=== PATIENT | female | born 1995 | race Caucasian/White ===

== ENCOUNTER 2019-10-25 21:18 | Inpatient (IN) | payer BC ==
[2019-10-25] MEDS ORDERED: MISOPROSTOL 0.2 MG TABLET ONE (21:45)
[2019-10-25] MEDS ORDERED: OXYTOCIN 10 UNIT/ML VIAL ONE (21:45)
[2019-10-25] MEDS ORDERED: LIDOCAINE 1% INJ-PF (10 MG/ML) 30 ML SDV ONE (21:46)
[2019-10-25] MEDS ORDERED: OXYTOCIN/NORMAL SALINE 20 UNIT/1,000 ML RTUINJ ONE (21:46)
[2019-10-25] MEDS ORDERED: RINGERS SOLUTION,LACTATED 1,000 ML IV PRN (21:54)
[2019-10-25] MEDS ORDERED: RINGERS SOLUTION,LACTATED 1,000 ML IV ONE (21:54)
[2019-10-25 22:02] LABS: APPEARANCE,URINE CLOUDY; BILIRUBIN,URINE NEGATIVE (NEGATIVE); COLOR,URINE YELLOW; GLUCOSE, URINE NEGATIVE (NEGATIVE); KETONES,URINE NEGATIVE (NEGATIVE); LEUKOCYTE ESTERASE,URINE NEGATIVE (NEGATIVE); NITRITE,URINE NEGATIVE (NEGATIVE); PROTEIN,URINE 30 mg/dL (NEGATIVE); URINE SPECIFIC GRAVITY 1.017
--- NOTE | 2019-10-25 22:03 | Admission Physical ---
Datetime Report Generated by CPN: 10/25/2019 22:03 CURRENT ADMISSION Chief Complaint: Uterine Contractions Indication for Induction: Not Applicable Admit Impression : Term, Intrauterine Admit Plan: Admit to Unit; Initiate Labor Protocol ALLERGIES Medication Allergies: amoxicillin/SV/hives all over (10/25/2019) OBSTETRICAL HISTORY EDC: 10/23/2019 00:00 : 3 Para: 1 Livin Gestational Diabetes: No Rh Sensitization: No Incompetent Cervix: No REMEDIOS: No Infertility: No ART Treatment: No Uterine Anomaly: No IUGR: No Hx Previous C/S: No Macrosomia: No Hx Loss/Stillborn: No PIH: No Hx : No Placenta Previa/Abruption: No Depression/PP Depression: No PTL/PROM: No Post Hemorrhage: No Current Procedures: Ultrasound; NST Obstetrical History Comments: G1 2013 SAB G2 2016 @39 weeks, 8lbs 6oz, jaundice, hypospadis, anemia MEDICAL HISTORY Diabetes: No Blood Transfusion: No Pulmonary Disease (Asthma, TB): No Breast Disease: No Hypertension: No 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 Development 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 Surgery: No Heart Disease: No Hosp/Surgery: No Autoimmune Disorder: No Anesthetic Complications: No Kidney Disease: No Abnormal Pap Smear: No Neuro/Epilepsy: No Psychiatric Disorders: No Other Medical Diseases: No Hepatitis/Liver Disease: No Significant Family History: No Varicosities/Phlebitis: No Trauma/Violence : No Thyroid Dysfunction: No Medical History Comments: anemia INFECTIOUS HISTORY Gonorrhea: No Genital Herpes: No Chlamydia: No Tuberculosis: No Syphilis: No Hepatitis: No HIV/AIDS Exposure: No Rash or Viral Illness: No HPV: No PHYSICAL EXAM General: Normal HEENT: Normal Neurologic: Normal Thyroid: Normal Heart: Normal Lungs: Normal Breast: Deferred Back: Normal Abdomen: Normal Genitourinary Exam: Normal Extremities: Normal DTRs: Normal Pelvic Type: Adequate FETUS A EGA: 40.2 INFORMED CONSENT Signature: with User ID: [email or web address]
[2019-10-25] MEDS ORDERED: ACETAMINOPHEN 650 MG SUPP.RECT PR PRN (22:18)
[2019-10-25] MEDS ORDERED: ZOLPIDEM TARTRATE 5 MG TABLET PO PRN (22:18)
[2019-10-25] MEDS ORDERED: NA PHOS,M-B/NA PHOS,DI-BA (ADULT) 133 ML ENEMA PR PRN (22:18)
[2019-10-25] MEDS ORDERED: DIPHENHYDRAMINE HCL 25 MG CAPSULE PO PRN (22:18)
[2019-10-25] MEDS ORDERED: PROMETHAZINE HCL INJ 25 MG/1 ML VIAL IV PRN (22:18)
[2019-10-25] MEDS ORDERED: BENZOCAINE/MENTHOL AEROSOL SPRAY 56 ML TOP PRN (22:18)
[2019-10-25] MEDS ORDERED: PSEUDOEPHEDRINE HCL 30 MG TABLET PO PRN (22:18)
[2019-10-25] MEDS ORDERED: DIBUCAINE 1% OINTMENT 28 GM TP PRN (22:18)
[2019-10-25] MEDS ORDERED: DIPH/PERTUSS(ACELL)/TETANUS VAC/PF 0.5 ML SYR (>=10YO) IM PRN (22:18)
[2019-10-25] MEDS ORDERED: PROMETHAZINE HCL 25 MG TABLET PO PRN (22:18)
[2019-10-25] MEDS ORDERED: GLYCERIN/WITCH HAZEL LEAF 1 EACH MED..WIPE TP PRN (22:18)
[2019-10-25] MEDS ORDERED: ACETAMINOPHEN WITH CODEINE #3 TABLET PO PRN (22:18)
[2019-10-25] MEDS ORDERED: OXYTOCIN/NORMAL SALINE 20 UNIT/1,000 ML RTUINJ IV PRN (22:18)
[2019-10-25] MEDS ORDERED: PROMETHAZINE HCL 25 MG SUPP.RECT PR PRN (22:18)
[2019-10-25] MEDS ORDERED: MEASLES,MUMPS&RUBELLA VACC/PF 0.5 ML VIAL SUBCUT PRN (22:18)
[2019-10-25] MEDS ORDERED: MAGNESIUM HYDROXIDE SUSP 30 ML UDCUP PO PRN (22:18)
[2019-10-25 22:21] LABS: ABSOLUTE LYMPHOCYTES (AUTO) 1.7 10^3/uL (0.5-4.7); ABSOLUTE MONOCYTES (AUTO) 0.9 10^3/uL (0.1-1.4); ABSOLUTE NEUT (AUTO) 10.4 10^3/uL (1.7-8.2); BASOPHILS % (AUTO) 0.3 % (0-2); EOSINOPHILS % (AUTO) 0.2 % (0-6); HEMATOCRIT 38.8 % (36.0-47.0); HEMOGLOBIN 13.4 g/dL (12.0-15.5); LYMPHOCYTES % (AUTO) 12.9 % (13-45); MEAN CORPUSCULAR HEMOGLOBIN 31.2 pg (27.0-33.4); MEAN CORPUSCULAR HGB CONC 34.5 g/dL (32.0-36.0); MEAN CORPUSCULAR VOLUME 90 fl (80-97); MONOCYTES % (AUTO) 6.7 % (3-13); PLATELET COUNT 278 10^3/uL (150-450); RED BLOOD COUNT 4.29 10^6/uL (3.72-5.28); RED CELL DISTRIBUTION WIDTH 12.3 % (11.5-14.0); SEGMENTED NEUTROPHILS % (AUTO) 79.9 % (42-78); TOTAL CELLS COUNTED % (AUTO) 100 %
[2019-10-25 22:27] LABS: URINE AMPHETAMINES SCREEN NEGATIVE; URINE BARBITURATES SCREEN NEGATIVE; URINE BENZODIAZEPINES SCREEN NEGATIVE; URINE COCAINE SCREEN NEGATIVE; URINE MARIJUANA (THC) SCREEN NEGATIVE; URINE METHADONE SCREEN NEGATIVE; URINE PHENCYCLIDINE SCREEN NEGATIVE
--- NOTE | 2019-10-25 23:33 | Delivery Summary ---
Del Sum A-C Datetime Report Generated by CPN: 10/25/2019 23:32 DELIVERY PERSONNEL DELIVERY PERSONNEL: [id number] Delivery Doctor:: Korey Leblanc MD Labor and Delivery Nurse:: Shireen Brooks RNrecord label internship Nurse:: Cailin Bills RN Nursery Nurse:: Donna Mendiola RN Felt Pad Cutter/ROBOTYPE OPERATOR: Shamika Ruvalcaba, ST MATERNAL INFORMATION Delivery Anesthesia: None Medications After Delivery: Pitocin Bolus-Please Comment Meds After Delivery Comment: 20 units pitocin after placenta delivery Maternal Complications: None LABOR SUMMARY EDC: 10/23/2019 00:00 No. Babies in Womb: 1 Attempted: No Labor Anesthesia: None LABOR INFORMATION Reason for Induction: Not Applicable Onset of Labor: 10/25/2019 19:00 Complete Dilatation: 10/25/2019 22:09 Oxytocin: N/A Group B Beta Strep: Negative Antibiotics # of Doses: n/a Antibiotics Time of Last Dose: N/A Name of Antibiotic Given: N/A Steroids Given: None Reason Steroids Not Administered: Not Applicable MEMBRANES Membranes Rupture Method: Spontaneous Rupture of Membranes: 10/25/2019 22:07 Length of Rupture (hr): 0.07 Amniotic Fluid Color: Clear Amniotic Fluid Amount: Moderate Amniotic Fluid Odor: Normal STAGES OF LABOR Stage 1 hr: 3 Stage 1 min: 9 Stage 2 hr: 0 Stage 2 min: 2 Stage 3 hr: 0 Stage 3 min: 3 Total Time in Labor hr: 3 Total Time in Labor min: 14 VAGINAL DELIVERY Episiotomy: None Laceration #1: None Laceration Extension #1: N/A Laceration Repair: Not Applicable Sponge Count Correct: Yes Sharps Count Correct: Yes CSECTION DELIVERY Primary Indication: N/A Secondary Indication: N/A CSection Urgency: N/A CSection Incidence: N/A Labor: N/A Elective: N/A CSection Incision: N/A BABY A INFORMATION Infant Delivery Date/Time: 10/25/2019 22:11 Method of Delivery: Vaginal Nurse Controlled Delivery: No Born in Route : No : N/A Forceps: N/A Vacuum Extraction: N/A Shoulder Dystocia : No PRESENTATION/POSITION BABY A Presentation: Cephalic Cephalic Presentation: Vertex Vertex Position: Left Occipital Anterior Breech Presentation: N/A PLACENTA INFORMATION BABY A Placenta Delivery Time : 10/25/2019 22:14 Placenta Method of Delivery: Spontaneous Placenta Status: Delivered SCORES BABY A Heart Rate 1 min: >100 bpm Resp Effort 1 min: Good Cry Reflex Irritability 1 min: Cough or Sneeze or Pulls Away Muscle Tone 1 min: Active Motion Color 1 min: Body Doffing, Extremities Blue Resuscitation Effort 1 min: Tactile Stimulation SCORE 1 MIN: 9 Heart Rate 5 min: >100 bpm Resp Effort 5 min: Good Cry Reflex Irritability 5 min: Cough or Sneeze or Pulls Away Muscle Tone 5 min: Active Motion Color 5 min: Body Doff[place], Extremities Blue Resuscitation Effort 5 min: N/A SCORE 5 MIN: 9 INFANT INFORMATION BABY A Gestational Age at Delivery: 40.2 Gestational Status: Full Term- 39- 40.6 Weeks Infant Outcome : Liveborn Infant Condition : Stable Infant Sex: Female IDENTIFICATION BABY A Verification Date/Time: 10/25/2019 22:22 ID Band Number: [id number] Mother's Name Verified: Yes Infant RN Verifying : Aristeo Brooks RN/ Dee Dee Jarvis RN WEIGHT/LENGTH BABY A Birthweight (gm): 3220 Infant Weight (lb): 7 Weight (oz): 2 Length (in): 19.50 Infant Length (cm): 49.53 CORD INFORMATION BABY A No. Cord Vessels: 3 Nuchal Cord : N/A Cord Blood Taken: Yes-For Eval (Mom's Blood Type - or O+) Infant Suction: Mouth ASSESSMENT BABY A Complications: None Physical Findings at Delivery: Other Physical Findings- Other: see nursery assessment Respirations: Appears Normal Skin to Skin: Yes Business Systems Advisor/ALS Called : No Infant Care By: Zak Mendiola RN Transferred To: Remains with Mother BABY B INFORMATION : N/A SIGNATURES Signature: with User ID: [email or web address]
[2019-10-26] MEDS: FAMOTIDINE 20 MG TABLET PO SCH ×3 (01:53→21:48)
[2019-10-26] MEDS: IBUPROFEN 800 MG TABLET PO SCH ×3 (06:27→21:48)
[2019-10-26 07:11] LABS: HEMATOCRIT 34.9 % (36.0-47.0); HEMOGLOBIN 12.4 g/dL (12.0-15.5); MEAN CORPUSCULAR HEMOGLOBIN 31.8 pg (27.0-33.4); MEAN CORPUSCULAR HGB CONC 35.4 g/dL (32.0-36.0); MEAN CORPUSCULAR VOLUME 90 fl (80-97); PLATELET COUNT 235 10^3/uL (150-450); RED BLOOD COUNT 3.89 10^6/uL (3.72-5.28); RED CELL DISTRIBUTION WIDTH 12.8 % (11.5-14.0); WHITE BLOOD COUNT 14.9 10^3/uL (4.0-10.5)
[2019-10-26] MEDS: FERROUS SULFATE 325 MG TABLET PO SCH ×2 (10:01→17:38)
[2019-10-26] MEDS: PRENATAL VITAMIN W DHA CAPSULE PO SCH (10:01)
[2019-10-26] MEDS: SENNOSIDES/DOCUSATE 8.6-50 MG 1 EACH TABLET PO SCH (10:01)
[2019-10-26] MEDS: DOCUSATE SODIUM 100 MG CAPSULE PO SCH ×2 (10:01→17:38)
--- NOTE | 2019-10-26 11:34 | PDOC PROGRESS REPORT ---
Subjective-OB Progress Note for:: 10/26/19 Subjective: reports bleeding slowing, pain controlled with current meds. denies needs Physical Exam (OB) Vital Signs: Temp Pulse Resp BP Pulse Ox 97.6 F 81 16 97/58 L 99 10/26/19 07:12 10/26/19 07:12 10/26/19 07:12 10/26/19 07:12 10/26/19 07:12 Intake & Output 10/25/19 10/26/19 10/27/19 06:59 06:59 06:59 Intake Total 800 Balance 800 Weight 74.1 kg - Abdomen Description: Soft, Round Hernia Present: No Fundal Description: Firm, Midline Fundal Height: u/u - u/2 - Abdominal Distension: No distension Tenderness: Nontender - Extremities Lower extremities: Gildardo's sign - neg Calf: Normal, Nontender Objective-Diagnostic Laboratory: 10/26/19 06:53 10/25/19 10/25/19 10/25/19 21:32 22:07 22:07 WBC 13.0 H RBC 4.29 Hgb 13.4 Hct 38.8 MCV 90 MCH 31.2 MCHC 34.5 RDW 12.3 Plt Count 278 Seg Neutrophils % 79.9 H Urine Color YELLOW Urine Appearance CLOUDY Urine pH 6.0 Ur Specific [place] 1.017 Urine Protein 30 H Urine Glucose (UA) NEGATIVE Urine Ketones NEGATIVE Urine Blood LARGE H Urine Nitrite NEGATIVE Ur Leukocyte Esterase NEGATIVE Blood Type O POSITIVE Antibody Screen NEGATIVE 10/26/19 06:53 WBC 14.9 H RBC 3.89 Hgb 12.4 Hct 34.9 L MCV 90 MCH 31.8 MCHC 35.4 RDW 12.8 Plt Count 235 Seg Neutrophils % Urine Color Urine Appearance Urine pH Ur Specific [place] Urine Protein Urine Glucose (UA) Urine Ketones Urine Blood Urine Nitrite Ur Leukocyte Esterase Blood Type Antibody Screen Assessment and Plan(PN) - Time Spent with Patient Time with patient: Less than 15 minutes - Disposition Anticipated Discharge: Home Within: within 24 hours
[2019-10-26] MEDS ORDERED: FAMOTIDINE 20 MG TABLET ONE (21:16)
[2019-10-27] MEDS: IBUPROFEN 800 MG TABLET PO SCH (05:40)
[2019-10-27 08:23] VITALS: BP 117/67
--- NOTE | 2019-10-27 09:01 | PDOC DISCHARGE SUMMARY ---
Impression - Admit/DC Date/PCP Admission Date/Primary Care Provider: 10/25/19 21:42 RUBENS BARRETO APRN Discharge Date: 10/27/19 - Discharge Diagnosis (1) Active labor Is this a current diagnosis for this admission?: Yes (2) Normal vaginal delivery Is this a current diagnosis for this admission?: Yes - Additional Information Discharge Diet: Regular Discharge Activity: Balance Activity w/Rest, Pelvic Rest Referrals: RUBENS BARRETO APRN [Primary Care Provider] - Prescriptions: Norethindrone [Deblitane] 0.35 mg PO DAILY #90 tablet Ibuprofen [Motrin 800 mg Tablet] 800 mg PO Q8HP PRN #60 tablet PRN Reason: Home Medications: Vits96/Iron Fum/Folic [ Tablet] 1 tab PO DAILY 10/25/19 Ibuprofen [Motrin 800 mg Tablet] 800 mg PO Q8HP PRN #60 tablet 10/27/19 Norethindrone [Deblitane] 0.35 mg PO DAILY #90 tablet 10/27/19 HPI Gestational Age: 40+2 Reason(s) for Admission: Onset of Labor Procedures: NST Intrapartum Procedure(s): Spontaneous Vaginal Delivery Results Laboratory Results: WBC 14.9 10^3/uL (4.0-10.5) H 10/26/19 06:53 RBC 3.89 10^6/uL (3.72-5.28) 10/26/19 06:53 Hgb 12.4 g/dL (12.0-15.5) 10/26/19 06:53 Hct 34.9 % (36.0-47.0) L 10/26/19 06:53 MCV 90 fl (80-97) 10/26/19 06:53 MCH 31.8 pg (27.0-33.4) 10/26/19 06:53 MCHC 35.4 g/dL (32.0-36.0) 10/26/19 06:53 RDW 12.8 % (11.5-14.0) 10/26/19 06:53 Plt Count 235 10^3/uL (150-450) 10/26/19 06:53 Lymph % (Auto) 12.9 % (13-45) L 10/25/19 22:07 [place] % (Auto) 6.7 % (3-13) 10/25/19 22:07 Eos % (Auto) 0.2 % (0-6) 10/25/19 22:07 Baso % (Auto) 0.3 % (0-2) 10/25/19 22:07 Absolute Neuts (auto) 10.4 10^3/uL (1.7-8.2) H 10/25/19 22:07 Absolute Lymphs (auto) 1.7 10^3/uL (0.5-4.7) 10/25/19 22:07 Absolute Monos (auto) 0.9 10^3/uL (0.1-1.4) 10/25/19 22:07 Absolute Eos (auto) 0.0 10^3/uL (0.0-0.6) 10/25/19 22:07 Absolute Basos (auto) 0.0 10^3/uL (0.0-0.2) 10/25/19 22:07 Seg Neutrophils % 79.9 % (42-78) H 10/25/19 22:07 Urine Color YELLOW 10/25/19 21:32 Urine Appearance CLOUDY 10/25/19 21:32 Urine pH 6.0 (5.0-9.0) 10/25/19 21:32 Ur Specific [place] 1.017 10/25/19 21:32 Urine Protein 30 mg/dL (NEGATIVE) H 10/25/19 21:32 Urine Glucose (UA) NEGATIVE mg/dL (NEGATIVE) 10/25/19 21:32 Urine Ketones NEGATIVE mg/dL (NEGATIVE) 10/25/19 21:32 Urine Blood LARGE (NEGATIVE) H 10/25/19 21:32 Urine Nitrite NEGATIVE (NEGATIVE) 10/25/19 21:32 Urine Bilirubin NEGATIVE (NEGATIVE) 10/25/19 21:32 Urine Urobilinogen 2.0 mg/dL (<2.0) H 10/25/19 21:32 Ur Leukocyte Esterase NEGATIVE (NEGATIVE) 10/25/19 21:32 Urine Ascorbic Acid NEGATIVE (NEGATIVE) 10/25/19 21:32 Urine Opiates Screen NEGATIVE 10/25/19 21:32 Urine Methadone Screen NEGATIVE 10/25/19 21:32 Ur Barbiturates Screen NEGATIVE 10/25/19 21:32 Ur Phencyclidine Scrn NEGATIVE 10/25/19 21:32 Ur Amphetamines Screen NEGATIVE 10/25/19 21:32 U Benzodiazepines Scrn NEGATIVE 10/25/19 21:32 Urine Cocaine Screen NEGATIVE 10/25/19 21:32 U Marijuana (THC) Screen NEGATIVE 10/25/19 21:32 RPR NONREACTIVE (NONREACTIVE) 10/25/19 22:07 Blood Type O POSITIVE 10/25/19 22:07 Antibody Screen NEGATIVE 10/25/19 22:07 Plan Plan of Treatment: start POP at 3 weeks post , follow up at [facility] in 4 weeks for post check
[2019-10-27] MEDS: FERROUS SULFATE 325 MG TABLET PO SCH (10:27)
[2019-10-27] MEDS: PRENATAL VITAMIN W DHA CAPSULE PO SCH (10:27)
[2019-10-27] MEDS: DOCUSATE SODIUM 100 MG CAPSULE PO SCH (10:27)
[2019-10-27] MEDS: SENNOSIDES/DOCUSATE 8.6-50 MG 1 EACH TABLET PO SCH (10:28)
[2019-10-27] MEDS: FAMOTIDINE 20 MG TABLET PO SCH (10:55)
== END 2019-10-27 13:55 | disposition home or self-care (01) | DRG 807 ==
LOC: LC 21:18 → LR 21:42 → 2S 10-26 00:12
PROVIDERS: ADMIT Obstetrics & Gynecology Gynecology; ATTEND Obstetrics & Gynecology Gynecology
PROC: 10E0XZZ Delivery of Products of Conception, External Approach (ICD-10-PCS; principal; 2019-10-25)
DX: O80 Encounter for full-term uncomplicated delivery (principal); Z37.0 Single live birth; Z3A.40 40 weeks gestation of pregnancy; Z88.0 Allergy status to penicillin
CPT/HCPCS: 36415; 80307; 81005; 85025; 85027; 86592; 86850; 86900; 86901; J2590; J3490